=== PATIENT | female | born 1965 | race Caucasian/White ===

== ENCOUNTER → 2016-08-20 | Outpatient (CLI) | payer BC ==
--- NOTE | 2016-08-25 13:21 | RADIOLOGY REPORT PS360 ---
DIG MAMM- SAMMIE ADD VIEWS W/CAD RIGHT BREAST ULTRASOUND LEFT BREAST ULTRASOUND COMPARISON: 07/21/2016 INDICATION: Abnormal screening baseline mammogram ORDERING PHYSICIAN: Donya Murphy MD PATIENT AGE: 50 years TECHNIQUE: Bilateral spot compression views along with magnification views on the left and bilateral breast ultrasound FINDINGS: There is very dense fibroglandular tissue which decreases the sensitivity of mammography. Right breast: No discrete mass evident on the right on the spot compression views. Right breast ultrasound: 6 mm cyst at 2:00. 15 x 9 mm cyst at 7:00, 7 mm cyst at 2:00. Ductal dilatation at this region. Ductal ectasia is present in the retroareolar region Left breast: Persistent 1 cm nodular opacity in the left retroareolar region representing a cyst by ultrasound.. Probably benign calcifications are present in the left breast with probable milk of calcium noted in the infra aspect of the left breast. Left breast ultrasound: 1 cm cyst at the 1:00 region likely corresponding to the mammographic abnormality. Ductal ectasia is noted. 3 mm cyst also at 1:00. IMPRESSION: No convincing evidence of malignancy. Probably benign findings. BI-RADS CATEGORY: 3_Probably Benign-Short Term F/U RECOMMENDED FOLLOWUP: 6 month lateral mammographic and sonographic follow-up to confirm baseline in this patient with very dense breast tissue (A letter has been sent to the patient regarding results of the study.)
== END ==
LOC: RAD 08-11 14:30
DX: R92.8 Other abnormal and inconclusive findings on diagnostic imaging of breast (principal)
CPT/HCPCS: G0204